=== PATIENT | male | born 1960 | race Native Hawaiian/Other Pacific Islander ===

== ENCOUNTER 2021-04-08 19:01 | Observation (INO) ==
[2021-04-08 20:41] LABS: ABS Basophils 0.1 10^3/ul (0-0.2); ABS Eosinophils 0.1 10^3/ul (0-0.6); ABS Lymphocytes 1.1 10^3/ul (1.0-4.8); ABS Neutrophils 11.4 10^3/ul (1.5-7.7); Eosinophil % 1.1 %; Hematocrit 41 % (42-52); Hemoglobin 14.1 g/dL (14.0-18.0); Lymphocyte % 8.3 %; Mean Corpuscular HGB Conc 35 g/dL (31-36); Mean Corpuscular Hemoglobin 31 pg (27-31); Mean Corpuscular Volume 90 fL (80-94); Mean Platelet Volume 7.5 fL (7.4-10.4); Platelet Count 415 10^3/uL (150-450); Red Blood Count 4.51 10^6 /uL (4.18-5.48); Red Cell Distribution Width 13 % (10-15); White Blood Count 13.8 10^3/uL (3.5-10.8)
[2021-04-08 20:56] LABS: ALT 57 U/L (7-52); AST 31 U/L (13-39); Albumin 4.2 g/dL (3.2-5.2); Albumin/Globulin Ratio 1.3 (1-3); Alkaline Phosphatase 265 U/L (35-149); Anion Gap 9 mmol/L (2-11); Blood Urea Nitrogen 11 mg/dL (6-24); CO2 Carbon Dioxide 27 mmol/L (22-32); Calcium 9.5 mg/dL (8.6-10.3); Chloride 100 mmol/L (101-111); EGFR African American 105.5 (>60); EGFR Non-African American 87.2 (>60); Globulin 3.3 g/dL (2-4); Glucose 153 mg/dL (70-100); Potassium 3.7 mmol/L (3.5-5.0); Sodium 136 mmol/L (135-145); Total Protein 7.5 g/dL (6.4-8.9)
[2021-04-08 20:58] LABS: Troponin I 0.03 ng/mL (<0.03)
[2021-04-08 21:17] LABS: Alcohol, S < 10 mg/dL (<10)
[2021-04-08 21:32] LABS: TSH Ultra Thyroid Stim Horm 0.85 mcIU/mL (0.34-5.60)
[2021-04-08] MEDS ORDERED: Iohexol 350 (CONTRAST) 500 ML MDV IV ONE (23:51)
[2021-04-08 23:57] LABS: Troponin I 0.03 ng/mL (<0.03)
[2021-04-09] MEDS ORDERED: NS 0.9% 1000 ml BAG 1,000 ML IV ONE (01:18)
[2021-04-09 04:32] LABS: Urine Appearance Clear; Urine Bilirubin Negative (Negative); Urine Blood Negative (Negative); Urine Color Yellow; Urine Glucose Negative (Negative); Urine Ketones Negative (Negative); Urine Nitrite Negative (Negative); Urine Protein Negative (Negative); Urine Specific Gravity 1.044 (1.002-1.030); Urine Urobilinogen Negative (Negative)
[2021-04-09 04:38] LABS: Cholesterol 163 mg/dL; HDL Cholesterol 52.2 mg/dL; LDL Cholesterol 90 mg/dL; Triglycerides 103 mg/dL
[2021-04-09 04:53] LABS: Urine Benzodiazepine Screen None Detected (None Detect); Urine Cannabinoids Screen None Detected (None Detect); Urine Opiates Screen None Detected (None Detect)
[2021-04-09 07:08] LABS: ABS Basophils 0.1 10^3/ul (0-0.2); ABS Eosinophils 0.1 10^3/ul (0-0.6); ABS Lymphocytes 1.6 10^3/ul (1.0-4.8); ABS Monocytes 0.8 10^3/ul (0-0.8); ABS Neutrophils 6.9 10^3/ul (1.5-7.7); Eosinophil % 0.8 %; Hematocrit 38 % (42-52); Hemoglobin 13.2 g/dL (14.0-18.0); Lymphocyte % 16.7 %; Mean Corpuscular HGB Conc 35 g/dL (31-36); Mean Corpuscular Hemoglobin 32 pg (27-31); Mean Corpuscular Volume 90 fL (80-94); Mean Platelet Volume 7.2 fL (7.4-10.4); Platelet Count 383 10^3/uL (150-450); Red Blood Count 4.17 10^6 /uL (4.18-5.48); Red Cell Distribution Width 13 % (10-15); White Blood Count 9.6 10^3/uL (3.5-10.8)
[2021-04-09 07:30] LABS: Albumin 3.7 g/dL (3.2-5.2); Albumin/Globulin Ratio 1.3 (1-3); Calcium 8.9 mg/dL (8.6-10.3); EGFR African American 136.9 (>60); EGFR Non-African American 113.2 (>60); Globulin 2.9 g/dL (2-4); Potassium 3.9 mmol/L (3.5-5.0); Total Bilirubin 0.5 mg/dL (0.2-1.0); Total Protein 6.6 g/dL (6.4-8.9)
[2021-04-09] MEDS: Aspirin EC 81 mg TAB.EC (enteric coated) PO SCH (09:37)
[2021-04-09] MEDS: Multivitamins/Minerals TAB PO SCH (09:37)
[2021-04-09] MEDS: Cholecalciferol (VIT D3) 1,000 unit TAB PO SCH (11:12)
[2021-04-09 11:13] LABS: Uric Acid 5.7 mg/dL (4.4-7.6)
[2021-04-10] MEDS: Multivitamins/Minerals TAB PO SCH (09:57)
[2021-04-10] MEDS: Aspirin EC 81 mg TAB.EC (enteric coated) PO SCH (09:58)
[2021-04-10] MEDS: Cholecalciferol (VIT D3) 1,000 unit TAB PO SCH (09:58)
[2021-04-10 10:27] LABS: ABS Basophils 0.1 10^3/ul (0-0.2); ABS Eosinophils 0.2 10^3/ul (0-0.6); ABS Lymphocytes 1.3 10^3/ul (1.0-4.8); ABS Monocytes 0.9 10^3/ul (0-0.8); ABS Neutrophils 7.8 10^3/ul (1.5-7.7); Eosinophil % 2.2 %; Hematocrit 41 % (42-52); Lymphocyte % 12.3 %; Mean Corpuscular HGB Conc 34 g/dL (31-36); Mean Corpuscular Hemoglobin 31 pg (27-31); Mean Corpuscular Volume 91 fL (80-94); Mean Platelet Volume 7.4 fL (7.4-10.4); Platelet Count 392 10^3/uL (150-450); Red Blood Count 4.51 10^6 /uL (4.18-5.48); Red Cell Distribution Width 13 % (10-15); White Blood Count 10.3 10^3/uL (3.5-10.8)
[2021-04-10 10:41] LABS: Calcium 9.6 mg/dL (8.6-10.3); EGFR African American 102.8 (>60); Potassium 4.3 mmol/L (3.5-5.0)
[2021-04-10 12:55] VITALS: BP 145/69
== END 2021-04-10 14:05 | disposition home or self-care (01) ==
LOC: MEDTELE 19:01 → ED 19:01 → EDHOLD 19:01 → MEDTELE 04-09 07:35
PROVIDERS: ADMIT Internal Medicine; ATTEND Internal Medicine